=== PATIENT | female | born 1985 | race Caucasian/White ===

== ENCOUNTER 2020-02-08 14:33 | Day surgery (SDC) | payer BC ==
[~2020-02-08 14:33] MED LIST: Sodium Chloride 0.9% 10 ML Syringe FLUSH PRN
[2020-02-08] MEDS ORDERED: Midazolam 1 MG/ML 2 ML SDV ONE (14:56)
[2020-02-08] MEDS ORDERED: Rocuronium 50 MG/5 ML Vial ONE (14:56)
[2020-02-08] MEDS ORDERED: Propofol 200 MG/20 ML SDV ONE (14:56)
[2020-02-08] MEDS ORDERED: fentaNYL 250 MCG/5 ML SDV ONE (14:56)
[2020-02-08] MEDS ORDERED: Bupivacaine 0.5% 30 ML SDV ONE (15:04)
[2020-02-08] MEDS ORDERED: Clindamycin Phosphate in D5W 900 MG in Premix Bag 1 BAG IV ONE ×2 (15:15)
[2020-02-08] MEDS ORDERED: Lidocaine 1%/Sod Bicarbonate in NS 8.4% 1 ML Syringe IDERM PRN (15:31)
--- NOTE | 2020-02-08 15:32 | PCM.PREANE ---
Preanesthetic Assessment - Procedure Proposed Procedure: Diagnostic laparoscopy - Anesthesia/Transfusion/Family Hx Anesthesia History: Prior Anesthesia Without Reaction - Review of Systems General: No Symptoms Pulmonary: No Symptoms Cardiovascular: No Symptoms Gastrointestinal: No Symptoms Neurological: No Symptoms Other: Reports: None - Physical Assessment NPO Status Date: 02/08/20 NPO Status Time: 12:00 (CLQ) Vital Signs: Last Vital Signs Temp 98.5 F 02/08/20 14:45 Pulse 79 02/08/20 14:45 Resp 16 02/08/20 14:45 BP 147/83 H 02/08/20 14:45 Pulse Ox 99 02/08/20 14:45 Height: 1.78 m Weight: 93.9 kg ASA Class: 1E Mental Status: Alert & Oriented x3 Airway Class: Mallampati = 1 Dentition: Reports: Normal Dentition Thyro-Mental Finger Breadths: 3 Mouth Opening Finger Breadths: 3 ROM/Head Extension: Full Lungs: Clear to Auscultation, Normal Respiratory Effort Cardiovascular: Regular Rate, Regular Rhythm - Allergies Allergies/Adverse Reactions: Allergies Allergy/AdvReac Type Severity Reaction Status Date / Time cephalexin monohydrate Allergy Hives Verified 02/08/20 15:14 [From Keflex] chloraprep Allergy Burning Uncoded 02/08/20 15:14 - Acknowledgements Anesthesia Type Planned: General Anesthesia Pt an Appropriate Candidate for the Planned Anesthesia: Yes Alternatives and Risks of Anesthesia Discussed w Pt/Guardian: Yes Pt/Guardian Understands and Agrees with Anesthesia Plan: Yes PreAnesthesia Questionnaire - HOME MEDS Home Medications: Home Meds Acyclovir [Zovirax] 400 mg PO DAY 02/08/20 [History] Cholecalciferol (Vitamin D3) [Vitamin D3] 1,000 unit PO DAILY 02/08/20 [History] Cider Vinegar [Apple Cider Vinegar] 300 mg PO DAILY 02/08/20 [History] Cranberry 500 mg PO DAILY 02/08/20 [History] FLUoxetine HCl [Fluoxetine HCl] 10 mg PO DAILY 02/08/20 [History] FLUoxetine HCl [Fluoxetine HCl] 20 mg PO DAILY 02/08/20 [History] Lactobacillus Acidophilus [Probiotic] 1 cap PO DAILY 02/08/20 [History] Lidocaine/Prilocaine [Lidocaine-Prilocaine Cream] 1 dose TOP ASDIRECTED PRN 02/08/20 [History] Triamcinolone Acetonide [Kenalog 0.1% Crm] 1 dose TOP ASDIRECTED PRN 02/08/20 [History] proGESTerone [Progesterone] 1 supp VAG BID 02/08/20 [History] - CURRENT (IN HOUSE) MEDS Current Meds: Current Medications Discontinued Medications Bupivacaine HCl (Marcaine 0.5%) Confirm Administered Dose 30 ml .ROUTE .STK-MED ONE Stop: 02/08/20 15:05 Fentanyl (Sublimaze) Confirm Administered Dose 250 mcg .ROUTE .STK-MED ONE Stop: 02/08/20 14:57 Midazolam HCl (Versed 1 Mg/Ml) Confirm Administered Dose 4 mg .ROUTE .STK-MED ONE Stop: 02/08/20 14:57 Propofol (Diprivan 20 Ml) Confirm Administered Dose 200 mg .ROUTE .STK-MED ONE Stop: 02/08/20 14:57 Rocuronium [place] (Zemuron) Confirm Administered Dose 50 mg .ROUTE .STK-MED ONE Stop: 02/08/20 14:57
[2020-02-08] MEDS ORDERED: Ondansetron 4 MG/2 ML SDV ONE (15:37)
[2020-02-08] MEDS ORDERED: Dexamethasone 4 MG/ML 5 ML MDV ONE (15:38)
[2020-02-08] MEDS ORDERED: Lactated Ringers 1,000 ML IV SCH (15:45)
[2020-02-08] MEDS ORDERED: fentaNYL 100 MCG/2 ML SDV IVPUSH PRN (15:45)
[2020-02-08] MEDS ORDERED: HYDROmorphone 0.5 MG/0.5 ML Syringe IVPUSH PRN (15:45)
[2020-02-08] MEDS ORDERED: Lactated Ringers 1,000 ML ONE (16:09)
[2020-02-08] MEDS ORDERED: Ketorolac 30 MG/ML SDV ONE (16:11)
[2020-02-08] MEDS ORDERED: Ondansetron 4 MG/2 ML SDV IVPUSH PRN (16:45)
[2020-02-08] MEDS ORDERED: Ibuprofen 600 MG Tab PO PRN (16:45)
[2020-02-08] MEDS ORDERED: Acetaminophen/oxyCODONE 325-5 MG Tab PO PRN (16:45)
--- NOTE | 2020-02-08 16:46 | PCM.POSTAN ---
POST ANESTHESIA ASSESSMENT - MENTAL STATUS Mental Status: Somnolent - VITAL SIGNS Vital Signs: Last Vital Signs Temp 97.6 F 02/08/20 16:35 Pulse 79 02/08/20 14:45 Resp 16 02/08/20 16:45 BP 113/63 02/08/20 16:45 Pulse Ox 100 02/08/20 16:45 - RESPIRATORY Respiratory Status: Respiratory Rate WNL, Airway Patent, O2 Saturation Stable, Supplemental Oxygen - CARDIOVASCULAR CV Status: Pulse Rate WNL, Blood Pressure Stable - GASTROINTESTINAL GI Status: No Symptoms - PAIN Pain Score: 0 - POST OP HYDRATION Hydration Status: Adequate & Stable
--- NOTE | 2020-02-08 16:56 | PCM.OPNOTE ---
- General Post-Op/Procedure Note Date of Surgery/Procedure: 02/08/20 Operative Procedure(s): Laparoscopy with lysis of pelvic adhesions and right salpingectomy Findings: Patient is noted to have a hemoperitoneum with approximately 100 mL of blood present in the posterior and anterior cul-de-sac. There is active bleeding from the fimbriated end of the right fallopian tube. The right fallopian tube was enlarged, edematous and had blood clot adhered to attending involving the ovary on the right side also. Left fallopian tube and ovary and the ovary, once cleaned of clot, were found to be normal in appearance. The appendix was flaccid and noninflamed. The gallbladder was noninflamed and liver edges were within normal limits. There were some adhesions on the posterior cul-de-sac these are was feeling nature and possibly associated with previous posterior cul-de-sac inflammation or infection. There were venous varicosities noted in the left broad ligament and left pelvic ligament area. Pre Op Diagnosis: 1. Right ectopic . 2. Hemoperitoneum Post-Op Diagnosis: Same with pelvic adhesionsomentum to anterior abdominal wall. Anesthesia Technique: General ET Tube Other Anesthesia Type: Marcaine 0.5% approximately 3-5 mL at each of 3 incision sites. Primary Surgeon: Josue Cheng Secondary Surgeon: Delmer Harp Anesthesia Provider: Himanshu Metcalf Payroll Bookkeeper: Zoë Castaneda Reason Payroll Bookkeeper Was Necessary: Retraction, assistance, patient safety, quality of care. Pathology: Right fallopian tube with ectopic within it Fluid Replacement, Intraop: 1,500 Output, Urine Amount: 100 EBL in mLs: 100 Drain/Tube Comments:: Indwelling bladder catheter during surgery only. Removed at the end of the case. Complications: None Condition: Good Free Text/Narrative:: Surgery duration: 40 minutes Procedure: The patient was taken to the operating room and placed in supine position on the operative table. She had sequential compression stockings in place for DVT prophylaxis and had been given 900 g of clindamycin for infection prophylaxis. She was administered general endotracheal anesthesia. After administration of anesthesia the patient was placed in dorsal lithotomy position and prepped and draped in usual fashion. An indwelling bladder catheter was placed as was a uterine manipulator. Infraumbilical incision site and right lower quadrant abdominal site were then infiltrated with approximately 3-5 mL of Marcaine 0.5%. 5 mm incisions were made in these areas. Verres needle was placed in the infraumbilical incision site and pneumoperitoneum was established was in 3.5 L of CO2. The laparoscopic sleeve was then placed as was the scope. Under direct visualization the suprapubic site was developed with a 12 mm port. Pelvis was evaluated findings as above. Using a suction irrigation device the [place] was evacuated of hemoperitoneum blood. Approximately 100 mL total. The right ovary and fallopian tube were then elevated and 2 was found to be enlarged and indurated and approximately three quarters of its entire length. The mesosalpinx was identified and using Enseal vessel closure system this area was developed effectively removing the tube from the proximal normal tube all the way through the fimbriated end of the tube effectively removing the right tubal . It should be noted there was active bleeding from the fimbriated end of the fallopian tube at the time of the surgery. At this time the pelvis-anterior and posterior cul-de-sac specifically was irrigated and blood was removed. Hemostasis was confirmed. The right lower quadrant incision was then evaluated after removal of the 5 mm port. The supe rpubic site was also evaluated. Pneumoperitoneum was reversed and the upper port trocar was. The fascial layer of the site was closed with a [id number] suture of 0 Vicryl. It was closed with a single 3-0 Monocryl suture as were the right lower quadrant and the infraumbilical port sites. There further approximated with Dermabond skin glue. The patient was awakened from general endotracheal anesthesia. She may note that the indwelling bladder catheter was removed at the end the procedure. Patient left the operating room in good condition.
--- NOTE | 2020-02-08 17:19 | PCM48HPAN ---
Post Anesthesia Note - EVALUATION WITHIN 48HRS OF ANESTHETIC Vital Signs in Normal Range: Yes Patient Participated in Evaluation: Yes Respiratory Function Stable: Yes Airway Patent: Yes Cardiovascular Function Stable: Yes Hydration Status Stable: Yes Pain Control Satisfactory: Yes Nausea and Vomiting Control Satisfactory: Yes Mental Status Recovered: Yes Vital Signs: Last Vital Signs Temp 97.6 F 02/08/20 16:35 Pulse 79 02/08/20 14:45 Resp 12 02/08/20 17:15 BP 121/70 02/08/20 17:15 Pulse Ox 100 02/08/20 17:15 - COMMENTS/OBSERVATIONS Free Text/Narrative:: No anesthesia complications noted. Patient is being transferred to Medical- Surgical floor for an extended recovery
[2020-02-08] MEDS ORDERED: Acetaminophen/oxyCODONE 325-5 MG Tab PO ONE (20:07)
== END 2020-02-08 20:35 | disposition home or self-care (01) ==
LOC: JD.SDS 14:33 → JD.MS 18:21 → JD.SDS 20:35
PROVIDERS: ATTEND Obstetrics & Gynecology
DX: O00.101 Right tubal pregnancy without intrauterine pregnancy (principal); K66.1 Hemoperitoneum; F41.8 Other specified anxiety disorders; Z88.1 Allergy status to other antibiotic agents; Z88.8 Allergy status to other drugs, medicaments and biological substances; Z79.899 Other long term (current) drug therapy
CPT/HCPCS: 59151; A9270; J1100; J1885; J2250; J2405; J2704; J3010; J3490; J7120; 00840

== ENCOUNTER 2020-07-06 20:18 | Day surgery (SDC) | payer BC ==
[2020-07-06] MEDS ORDERED: Sodium Chloride 0.9% 10 ML Syringe FLUSH PRN (20:49)
[2020-07-06] MEDS ORDERED: Sodium Chloride 0.9% 1,000 ML IV STA (20:50)
[2020-07-06] MEDS ORDERED: HYDROmorphone 0.5 MG/0.5 ML Syringe IVPUSH ONE ×2 (20:50→21:43)
[2020-07-06] MEDS ORDERED: Ondansetron 4 MG/2 ML SDV IVPUSH ONE (20:50)
--- NOTE | 2020-07-06 21:08 | EDM.PDOC ---
ED HPI GENERAL MEDICAL PROBLEM - General Chief Complaint: Abdominal Pain Stated Complaint: SENT BY MIS[facility]RI[facility] TODAY Time Seen by Provider: 07/06/20 20:41 Source of Information: Reports: Patient, RN Notes Reviewed History Limitations: Reports: No Limitations - History of Present Illness INITIAL COMMENTS - FREE TEXT/NARRATIVE: Patient is a 35-year-old female presenting to the emergency department with complaints of severe abdominal pain, pelvic cramping, and pain shooting up to her right shoulder. Symptoms began around 3 PM this afternoon. She states it has been consistent, possibly slightly worse, since that time. Patient was told 2 weeks ago that she was going to have a miscarriage by her [employer], Dr. Cheng. Review of her medical record shows that her quantitative hCG dropped from 9556 on 10 June to 4735 on June 21. Patient states that on June 24, she had bleeding which she describes as like a regular period. She did not have a significant amount of cramping or pain with this bleeding. It lasted 7 days. She is not sure if she passed tissue. She has no vaginal bleeding at this time. States that she has had regular bowel movements. Which she went today, however she states it was very painful to go. She denies any fever or chills. She has had nausea with dry heaves but no vomiting. Denies diarrhea. Patient also has a medical history significant for a right ectopic in January 2020. At that time she had a right salpingectomy. She states this does not feel like her previous ectopic , therefore she was not very concerned. She spoke to Dr. Cheng's nurse this afternoon. She was advised that if the pain does not improve, she could should come to the ER otherwise, she was to have a pelvic ultrasound done in the clinic tomorrow. Lower Abdomen Pain Score (Numeric/FACES): 9 - Related Data Allergies Allergy/AdvReac Type Severity Reaction Status Date / Time cephalexin monohydrate Allergy Hives Verified 07/06/20 20:40 [From Keflex] chloraprep Allergy Burning Uncoded 02/08/20 15:14 Home Meds: Home Meds Cholecalciferol (Vitamin D3) [Vitamin D3] 1,000 unit PO DAILY 02/08/20 [History] Cider Vinegar [Apple Cider Vinegar] 300 mg PO DAILY 02/08/20 [History] Cranberry 500 mg PO DAILY 02/08/20 [History] FLUoxetine HCl [Fluoxetine HCl] 10 mg PO DAILY 02/08/20 [History] FLUoxetine HCl [Fluoxetine HCl] 20 mg PO DAILY 02/08/20 [History] Lactobacillus Acidophilus [Probiotic] 1 cap PO DAILY 02/08/20 [History] Lidocaine/Prilocaine [Lidocaine-Prilocaine Cream] 1 dose TOP ASDIRECTED PRN 02/08/20 [History] Ibuprofen [Motrin] 600 mg PO Q4H PRN tablet 07/07/20 [Rx] traMADol [Ultram] 50 mg PO Q4H PRN #0 tablet 07/07/20 [Rx] Past Medical History - Past Health History Medical/Surgical History: Denies Medical/Surgical History HEENT History: Reports: Impaired Vision [employer] History: Reports: Ectopic , , Spontaneous - Past Surgical History Female Surgical History: Reports: Section, D&C, Oophorectomy Social & Family History - Family History Family Medical History: No Pertinent Family History - Tobacco Use Tobacco Use Status *Q: Never Tobacco User - Caffeine Use Caffeine Use: Reports: Coffee, Energy Drinks, Soda - Recreational Drug Use Recreational Drug Use: No ED ROS GENERAL - Review of Systems Review Of Systems: See Below Constitutional: Reports: No Symptoms. Denies: Fever, Chills HEENT: Reports: No Symptoms Respiratory: Reports: No Symptoms Cardiovascular: Reports: No Symptoms Endocrine: Reports: No Symptoms GI/Abdominal: Reports: Abdominal Pain, Nausea, Other (pain shooting to right shoulder). Denies: Diarrhea, Vomiting : Reports: Pain Musculoskeletal: Reports: No Symptoms Skin: Reports: No Symptoms Neurological: Reports: No Symptoms Psychiatric: Reports: No Symptoms Hematologic/Lymphatic: Reports: No Symptoms Immunologic: Reports: No Symptoms ED EXAM, GI/ABD - Physical Exam Exam: See Below Exam Limited By: No Limitations General Appearance: Alert, Mild Distress Respiratory/Chest: No Respiratory Distress, Lungs Clear, Normal Breath Sounds, No Accessory Muscle Use, Chest Non-Tender Cardiovascular: Normal Peripheral Pulses, Regular Rate, Rhythm, No Edema, No Gallop, No JVD, No Murmur, No Rub GI/Abdominal Exam: Soft, Guarding, Tender (Tenderness throughout the abdomen. Worsening tenderness suprapubically.), Abnormal Bowel Sounds (Hypoactive) Neurological: Alert, Oriented, CN II-XII Intact, Normal Cognition, Normal Gait, Normal Reflexes, No Motor/Sensory Deficits Psychiatric: Normal Affect, Normal Mood Skin Exam: Warm, Dry, Intact, Normal Color, No Rash Course - Vital Signs Last Recorded V/S: Last Vital Signs Temp 98.0 F 07/07/20 12:42 Pulse 55 L 07/07/20 12:05 Resp 16 07/07/20 12:42 BP 115/55 L 07/07/20 12:05 Pulse Ox 100 07/07/20 12:42 - Orders/Labs/Meds Labs: Laboratory Tests 07/06/20 07/06/20 07/06/20 Range/Units 20:55 20:55 20:55 WBC 16.83 H (3.98-10.04) K/mm3 RBC 3.62 L (3.98-5.22) M/mm3 Hgb 11.1 L D (11.2-15.7) gm/dl Hct 33.9 L (34.1-44.9) % MCV 93.6 (79.4-94.8) fl MCH 30.7 (25.6-32.2) pg MCHC 32.7 (32.2-35.5) g/dl RDW Std Deviation 40.1 (36.4-46.3) fL Plt Count 250 (182-369) K/mm3 MPV 10.7 (9.4-12.3) fl Neut % (Auto) 88.2 H (34.0-71.1) % Lymph % (Auto) 7.3 L (19.3-51.7) % [place] % (Auto) 4.2 L (4.7-12.5) % Eos % (Auto) 0 L (0.7-5.8) Baso % (Auto) 0.1 (0.1-1.2) % Neut # (Auto) 14.86 H (1.56-6.13) K/mm3 Lymph # (Auto) 1.23 (1.18-3.74) K/mm3 [place] # (Auto) 0.70 H (0.24-0.36) K/mm3 Eos # (Auto) 0.00 L (0.04-0.36) K/mm3 Baso # (Auto) 0.01 (0.01-0.08) K/mm3 Manual Slide Review Sodium 135 L (136-145) mEq/L Potassium 3.6 (3.5-5.1) mEq/L Chloride 102 (98-107) mEq/L Carbon Dioxide 24 (21-32) mEq/L Anion Gap 12.6 (5-15) BUN 18 (7-18) mg/dL Creatinine 1.1 H (0.55-1.02) mg/dL Est Cr Clr Drug Dosing 78.66 mL/min Estimated GFR (MDRD) 57 (>60) mL/min BUN/Creatinine Ratio 16.4 (14-18) Glucose 148 H (74-106) mg/dL Calcium 9.0 (8.5-10.1) mg/dL Total Bilirubin 0.4 (0.2-1.0) mg/dL AST 14 L (15-37) U/L ALT 37 (14-59) U/L Alkaline Phosphatase 35 L (46-116) U/L C-Reactive Protein < 0.2 (<1.0) mg/dL Total Protein 6.6 (6.4-8.2) g/dl Albumin 3.7 (3.4-5.0) g/dl Globulin 2.9 gm/dL Albumin/Globulin Ratio 1.3 (1-2) Lipase 87 (73-393) U/L HCG, Quant 632.0 mIU/mL SARS-CoV-2 RNA (NATALI) (NEGATIVE) Blood Type A POSITIVE Gel Antibody Screen Negative Crossmatch See Detail 07/06/20 07/07/20 Range/Units 21:45 09:55 WBC 10.01 (3.98-10.04) K/mm3 RBC 2.93 L (3.98-5.22) M/mm3 Hgb 8.9 L D (11.2-15.7) gm/dl Hct 27.6 L (34.1-44.9) % MCV 94.2 (79.4-94.8) fl MCH 30.4 (25.6-32.2) pg MCHC 32.2 (32.2-35.5) g/dl RDW Std Deviation 40.0 (36.4-46.3) fL Plt Count 214 (182-369) K/mm3 MPV 10.3 (9.4-12.3) fl Neut % (Auto) 86.7 H (34.0-71.1) % Lymph % (Auto) 8.5 L (19.3-51.7) % [place] % (Auto) 4.7 (4.7-12.5) % Eos % (Auto) 0 L (0.7-5.8) Baso % (Auto) 0.0 L (0.1-1.2) % Neut # (Auto) 8.68 H (1.56-6.13) K/mm3 Lymph # (Auto) 0.85 L (1.18-3.74) K/mm3 [place] # (Auto) 0.47 H (0.24-0.36) K/mm3 Eos # (Auto) 0.00 L (0.04-0.36) K/mm3 Baso # (Auto) 0.00 L (0.01-0.08) K/mm3 Manual Slide Review Abnormal smear Sodium (136-145) mEq/L Potassium (3.5-5.1) mEq/L Chloride (98-107) mEq/L Carbon Dioxide (21-32) mEq/L Anion Gap (5-15) BUN (7-18) mg/dL Creatinine (0.55-1.02) mg/dL Est Cr Clr Drug Dosing mL/min Estimated GFR (MDRD) (>60) mL/min BUN/Creatinine Ratio (14-18) Glucose (74-106) mg/dL Calcium (8.5-10.1) mg/dL Total Bilirubin (0.2-1.0) mg/dL AST (15-37) U/L ALT (14-59) U/L Alkaline Phosphatase (46-116) U/L C-Reactive Protein (<1.0) mg/dL Total Protein (6.4-8.2) g/dl Albumin (3.4-5.0) g/dl Globulin gm/dL Albumin/Globulin Ratio (1-2) Lipase (73-393) U/L HCG, Quant mIU/mL SARS-CoV-2 RNA (NATALI) Negative (NEGATIVE) Blood Type Gel Antibody Screen Crossmatch Meds: Medications Discontinued Medications Generic Name Dose Route Start Last Admin Trade Name Freq PRN Reason Stop Dose Admin Bupivacaine HCl Confirm 07/06/20 22:49 07/06/20 23:20 Marcaine 0.5% Administered 07/06/20 22:50 9 ml Dose Administration 30 ml .ROUTE .STK-MED ONE Dexamethasone Confirm 07/06/20 23:41 Dexamethasone Administered 07/06/20 23:42 Dose 20 mg .ROUTE .STK-MED ONE Diphenhydramine HCl 50 mg 07/07/20 13:56 07/07/20 14:07 Benadryl PO 07/07/20 13:57 50 mg ONETIME ONE Administration Fentanyl Confirm 07/06/20 22:21 Sublimaze Administered 07/06/20 22:22 Dose 250 mcg .ROUTE .STK-MED ONE Fentanyl 50 mcg 07/06/20 23:19 Sublimaze IVPUSH Q5M PRN Pain Glycopyrrolate Confirm 07/06/20 23:28 Robinul Administered 07/06/20 23:29 Dose 0.4 mg .ROUTE .STK-MED ONE Hydromorphone HCl 0.5 mg 07/06/20 20:50 07/06/20 20:58 Dilaudid IVPUSH 07/06/20 20:51 0.5 mg ONETIME ONE Administration Hydromorphone HCl 0.5 mg 07/06/20 21:43 07/06/20 21:47 Dilaudid IVPUSH 07/06/20 21:44 0.5 mg ONETIME ONE Administration Hydromorphone HCl 0.5 mg 07/06/20 23:19 07/07/20 00:49 Dilaudid IVPUSH 0.5 mg Q10M PRN Administration Pain (severe 7-10) Hydromorphone HCl Confirm 07/06/20 23:24 Dilaudid Administered 07/06/20 23:25 Dose 0.5 mg .ROUTE .STK-MED ONE Hydromorphone HCl 0.5 mg 07/07/20 03:18 07/07/20 03:26 Dilaudid IVPUSH 0.5 mg Q2H PRN Administration Pain Sodium Chloride 1,000 mls @ 150 mls/hr 07/06/20 20:50 07/06/20 20:58 Normal Saline IV 07/07/20 03:29 150 mls/hr NOW STA Administration Clindamycin Phosphate 900 mg/ 50 mls @ 100 mls/hr 07/06/20 22:07 07/06/20 22:15 Premix IV 07/06/20 22:36 100 mls/hr ONETIME ONE Administration Lidocaine HCl Confirm 07/06/20 22:21 Xylocaine-Mpf 1% Administered 07/06/20 22:22 Dose 4 mls @ as directed .ROUTE .STK-MED ONE Lactated Ringer's Confirm 07/06/20 23:25 Ringers, Lactated Administered 07/06/20 23:26 Dose 1,000 mls @ as directed .ROUTE .STK-MED ONE Dextrose/Lactated Ringer's 1,000 mls @ 125 mls/hr 07/07/20 00:30 Dextrose 5%-Lactated Ringers IV ASDIRECTED LACI Ibuprofen 600 mg 07/07/20 06:00 07/07/20 12:47 Motrin PO 600 mg Q4H PRN Administration Mild pain or fever Ketorolac Tromethamine Confirm 07/06/20 23:51 Toradol Administered 07/06/20 23:52 Dose 30 mg .ROUTE .STK-MED ONE Midazolam HCl Confirm 07/06/20 22:21 Versed 1 Mg/Ml Administered 07/06/20 22:22 Dose 2 mg .ROUTE .STK-MED ONE Neostigmine Methylsulfate Confirm 07/06/20 23:27 Neostigmine Methylsulfate Administered 07/06/20 23:28 Dose 5 mg .ROUTE .STK-MED ONE Ondansetron HCl 4 mg 07/06/20 20:50 07/06/20 20:57 Zofran IVPUSH 07/06/20 20:51 4 mg ONETIME ONE Administration Ondansetron HCl Confirm 07/06/20 22:21 Zofran Administered 07/06/20 22:22 Dose 4 mg .ROUTE .STK-MED ONE Ondansetron HCl 4 mg 07/06/20 23:19 Zofran IVPUSH ONETIME PRN Nausea/Vomiting Ondansetron HCl 4 mg 07/07/20 00:19 Zofran IVPUSH Q4H PRN Nausea Oxycodone/Acetaminophen 2 tab 07/07/20 00:19 07/07/20 10:02 Percocet 325-5 Mg PO 2 tab Q4H PRN Administration Pain Propofol Confirm 07/06/20 22:21 Diprivan 20 Ml Administered 07/06/20 22:22 Dose 200 mg .ROUTE .STK-MED ONE Rocuronium [place] Confirm 07/06/20 22:21 Zemuron Administered 07/06/20 22:22 Dose 50 mg .ROUTE .STK-MED ONE Sodium Chloride 10 ml 07/06/20 20:49 07/06/20 20:57 Saline Flush FLUSH 10 ml ASDIRECTED PRN Administration Keep Vein Open Tramadol HCl 50 mg 07/07/20 13:52 07/07/20 14:01 Ultram PO 50 mg Q4H PRN Administration Pain - Re-Assessments/Exams Free Text/Narrative Re-Assessment/Exam: Patient is a 35-year-old female presenting to the emergency department with diffuse abdominal pain, and pelvic cramping that shoots up into her right shoulder. This began about 3 PM this afternoon. She originally thought it was gas pains, but pain has not improved. She was told 2 weeks ago that she would have a miscarriage as her hCG level significantly dropped. She did have bl eeding for 1 week starting on 24 June but she is not sure if she passed any tissue. She denies any vaginal bleeding at this time. She is quite uncomfortable. She has tenderness throughout her abdomen worse suprapubically. I have ordered CBC, CMP, CRP, lipase, quantitative hCG, UA, CT scan of abdomen pelvis with IV contrast, NS at 150 mils per hour, Dilaudid 0.5 mg IV, and Zofran 4 mg IV. 07/06/20 21:48 CT scan of the abdomen pelvis shows obvious blood in the abdominal cavity. Official radiologist read is pending. Hemoglobin slightly low at 11.1, other lab results are pending. Called and spoke with Dr. Cheng, [employer]. He will be in to see the patient. Patient continues to have pain. I have ordered Dilaudid 0.5 mg IV. Also ordered type and screen, and 2 units of packed RBCs c rossmatched. 07/06/20 22:04 Dr. Cheng is here to see the patient. Request OR crew be called in. 07/06/20 22:[address] scan abdomen pelvis as follows. There is a moderate volume of high density free fluid seen mainly in the pelvis but also tracks into the abdomen. The appearance is worrisome for pneumoperitoneum, likely arising from the ovaries. In particular, a solid cystic lesion in the left adnexa likely representing an enlarged ovary. Differential diagnosis would include ruptured hemorrhagic cyst or ruptured ectopic . Given patient's history of elevated hCG, is likely this is a ruptured ectopic . Copy of report given to Dr. Cheng. Patient is being prepared for surgery. Departure - Departure Time of Disposition: 22:25 Disposition: DC/Tfer to [facility] Condition: Good Clinical Impression: Ectopic Qualifiers: Location of ectopic : unspecified location Intrauterine status: without intrauterine Qualified Code(s): O00.90 - Unspecified ectopic without intrauterine - Discharge Information Sepsis Event Note (ED) - Evaluation Sepsis Screening Result: No Definite Risk
[2020-07-06] MEDS ORDERED: Clindamycin Phosphate in D5W 900 MG in Premix Bag 1 BAG IV ONE ×2 (22:07)
[2020-07-06] MEDS ORDERED: Midazolam 1 MG/ML 2 ML SDV ONE (22:21)
[2020-07-06] MEDS ORDERED: Propofol 200 MG/20 ML SDV ONE (22:21)
[2020-07-06] MEDS ORDERED: Rocuronium 50 MG/5 ML Vial ONE (22:21)
[2020-07-06] MEDS ORDERED: Lidocaine 1% 4 ML ONE (22:21)
[2020-07-06] MEDS ORDERED: fentaNYL 250 MCG/5 ML SDV ONE (22:21)
[2020-07-06] MEDS ORDERED: Ondansetron 4 MG/2 ML SDV ONE (22:21)
--- NOTE | 2020-07-06 22:26 | PCM.LDHP ---
L&D History of Present Illness - General Date of Service: 07/06/20 Admit Problem/Dx: Patient Status Order with Admit Dx/Problem 07/06/20 22:08 Admission Status [Patient Status] [ADT] Routine Admission Diagnosis/Problem Admission Diagnosis/Problem Ectopic 07/06/20 22:14 Caterina is a 35-year-old 4 para 2-0-2-2 white female who is seen in the ED for complaints of acute onset of pelvic and abdominal pain at approximately 1500 hrs. today. She has a history of a decreasing nontender beta-hCG titers. On patient was noted to have a decreasing titer and beta-hCG that had dropped from 9556.0 milliunits/mL to 735 milliunits/mL. An ultrasound done on 06/21/2020 showed uterus measuring 8.91 cm in length by 5.52 cm in height by 5.29 cm in width. Within the endometrial cavity is a very irregular and vaguely seen radiolucent area. There is no evidence of pole or cardiac activity. This area was 1.37 cm in greatest dimension. Right ovary measures 3.52 x 1.74 x 1.12 cm and appeared normal. Left ovary was somewhat more difficult to see but was felt to measure 2.65 x 1.61 x 3.64 cm. There is no evidence of adnexal mass, radiolucent area or evidence of ectopic however ectopic cannot be ruled out. Patient was given ectopic precautions and asked to follow-up in 1 week. He apparently called into clinic on the afternoon of 07/06/2020 and talk to nursing staff. She is told to come into the emergency room if pain increase. She is here for that reason. She denies any vaginal bleeding, symptoms. Does report some abdominal pain extending up into her right shoulder area. 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 LMP 05/13/2020. She has had an ectopic with in the right fallopian tube which was removed in January 2020 via laparoscopy. She has had 2 previous sections. On last laparoscopic evaluation she was noted to have amount of scarring present. Past medical history: 1. Ectopic 2. Processed ovarian syndrome 3. History of depression with anxiety 4. History of acne 5. History of recurrent cold sores Past surgical history: 1. History of ankle surgery x2 at age 17 and 18. 2. C-sections 2010 2013. 3. History of laparoscopy 4. History of salpingectomy in the right fallopian tube. 5. History of tonsillectomy Allergies: 1. Keflex which caused hives. 2. Buprenorphine 3. Tincture of benzoin 4. Adhesive tape Medications: 1. Apple cider vinegar tablet 2. B12 folate 3. Cranberry capsule 4. Fluoxetine 10 mg daily 5. Lidocaine with prilocaine cream external applied 6. vitamins 7. Probiotic 8. Valacyclovir as needed for cold sores 9. Vitamin D oral tablet 1000 units/day. Family history: Father with hypertension and type 2 diabetes. Maternal great grandmother with malignant neoplasm of the breast at age 50. Maternal grandfather with family history of cardiac disorder with family history of heart disease in males before age 55, and. Family history of type 2 diabetes. Paternal grandfather with family history of prostate cancer. Social history: Patient is a homemaker. Occasional alcohol use. Never smoker. Review of systems: In general patient has no pain radiating to the shoulders. Pain increases with her movement. No shortness of breath, chest pain or lightheadedness noted. Had a bowel movement this afternoon.. Skin: Negative Lungs: No infectious symptoms or shortness of breath Cardiovascular: No chest pain or exercise intolerance Breasts: No lumps, changes in size, pain, dimpling, discharge or axillary or singh praclavicular concerns. GI: Negative : As per HPI. Musculoskeletal: Negative Neurological: Negative Physical exam: In general the patient is well-developed, well-nourished, pleasant female of stated age in moderate distress secondary to pain which she reports to be 9 on a scale of 10.. Skin is warm dry without lesions. HEENT, neck and back within normal limits. Lungs are clear with good breath sounds in all lung galaviz. Cardiovascular exam shows regular and rhythm without murmurs. Abdomen is flat, tender without masses or organomegaly. Positive bowel sounds are noted. No inguinal lymphadenopathy or hernias are noted. Some rebound tenderness and guarding is noted. Genital exam is deferred. Extremities and neurological exam are grossly within normal limits. Imaging shows moderate moderate high density free fluid seen mainly in the pelvis but also tracking into the abdomen. Suspicious for hemoperitoneum. A solid and cystic lesion in the left adnexa likely represents enlarged left ovary. Differential diagnosis includes potential ruptured ectopic . hCG at this time is 632 mg/mL. Hemoglobin is 11.1 with white count of 16.83. Platelets are 250,000. Creatin ine is 1.1. Remainder of the comprehensive metabolic profile is reasonably normal. 07/06/20 22:26 - History of Present Illness Timing/Duration: Reports: improving Pain Score: 8 - Related Data Allergies/Adverse Reactions: Allergies Allergy/AdvReac Type Severity Reaction Status Date / Time cephalexin monohydrate Allergy Hives Verified 07/06/20 20:40 [From Keflex] chloraprep Allergy Burning Uncoded 02/08/20 15:14 Home Medications: Home Meds Cholecalciferol (Vitamin D3) [Vitamin D3] 1,000 unit PO DAILY 02/08/20 [History] Cider Vinegar [Apple Cider Vinegar] 300 mg PO DAILY 02/08/20 [History] Cranberry 500 mg PO DAILY 02/08/20 [History] FLUoxetine HCl [Fluoxetine HCl] 10 mg PO DAILY 02/08/20 [History] FLUoxetine HCl [Fluoxetine HCl] 20 mg PO DAILY 02/08/20 [History] Ibuprofen [Motrin] 600 mg PO Q4H PRN tablet 02/08/20 [Rx] Lactobacillus Acidophilus [Probiotic] 1 cap PO DAILY 02/08/20 [History] Lidocaine/Prilocaine [Lidocaine-Prilocaine Cream] 1 dose TOP ASDIRECTED PRN 02/08/20 [History] Past Medical History - Past Health History Medical/Surgical History: Denies Medical/Surgical History HEENT History: Reports: Impaired Vision 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 , , Spontaneous - Past Surgical History Female Surgical History: Reports: Section, D&C, Oophorectomy Social & Family History - Family History Family Medical History: No Pertinent Family History - Tobacco Use Tobacco Use Status *Q: Never Tobacco User - Caffeine Use Caffeine Use: Reports: Coffee, Energy Drinks, Soda - Recreational Drug Use Recreational Drug Use: No H&P Review of Systems - Review of Systems: Review Of Systems: See Below L&D Exam - Exam Exam: See Below - Vital Signs Vital Signs: Last Vital Signs Temp 36.3 C 07/06/20 20:34 Pulse 69 07/06/20 20:34 Resp 20 07/06/20 20:34 BP 112/94 H 07/06/20 20:34 Pulse Ox 100 07/06/20 20:34 Weight: 103.691 kg - Patient Data Lab Results Last 24 hrs: Laboratory Results - last 24 hr 07/06/20 07/06/20 Range/Units 20:55 20:55 WBC 16.83 H (3.98-10.04) K/mm3 RBC 3.62 L (3.98-5.22) M/mm3 Hgb 11.1 L D (11.2-15.7) gm/dl Hct 33.9 L (34.1-44.9) % MCV 93.6 (79.4-94.8) fl MCH 30.7 (25.6-32.2) pg MCHC 32.7 (32.2-35.5) g/dl RDW Std Deviation 40.1 (36.4-46.3) fL Plt Count 250 (182-369) K/mm3 MPV 10.7 (9.4-12.3) fl Neut % (Auto) 88.2 H (34.0-71.1) % Lymph % (Auto) 7.3 L (19.3-51.7) % Wilson % (Auto) 4.2 L (4.7-12.5) % Eos % (Auto) 0 L (0.7-5.8) Baso % (Auto) 0.1 (0.1-1.2) % Neut # (Auto) 14.86 H (1.56-6.13) K/mm3 Lymph # (Auto) 1.23 (1.18-3.74) K/mm3 Wilson # (Auto) 0.70 H (0.24-0.36) K/mm3 Eos # (Auto) 0.00 L (0.04-0.36) K/mm3 Baso # (Auto) 0.01 (0.01-0.08) K/mm3 Manual Slide Review Sodium 135 L (136-145) mEq/L Potassium 3.6 (3.5-5.1) mEq/L Chloride 102 (98-107) mEq/L Carbon Dioxide 24 (21-32) mEq/L Anion Gap 12.6 (5-15) BUN 18 (7-18) mg/dL Creatinine 1.1 H (0.55-1.02) mg/dL Est Cr Clr Drug Dosing 78.66 mL/min Estimated GFR (MDRD) 57 (>60) mL/min BUN/Creatinine Ratio 16.4 (14-18) Glucose 148 H (74-106) mg/dL Calcium 9.0 (8.5-10.1) mg/dL Total Bilirubin 0.4 (0.2-1.0) mg/dL AST 14 L (15-37) U/L ALT 37 (14-59) U/L Alkaline Phosphatase 35 L (46-116) U/L C-Reactive Protein < 0.2 (<1.0) mg/dL Total Protein 6.6 (6.4-8.2) g/dl Albumin 3.7 (3.4-5.0) g/dl Globulin 2.9 gm/dL Albumin/Globulin Ratio 1.3 (1-2) Lipase 87 (73-393) U/L HCG, Quant 632.0 mIU/mL Result Diagrams: 07/06/20 20:55 07/06/20 20:55 Problem List Initiated/Reviewed/Updated: Yes Orders Last 24hrs: Active Orders 24 hr Category Date Time Status Admission Status [Patient Status] [ADT] Routine ADT 07/06/20 22:08 Active Antiembolic Devices [RC] PER UNIT ROUTINE Care 07/06/20 22:08 Active Peripheral IV Care [RC] . DIRECTED Care 07/06/20 20:49 Active Abdomen Pelvis w Cont [CT] Stat Exams 07/06/20 20:50 Ordered Abdomen Pelvis w Cont [CT] Stat Exams 07/06/20 20:50 Stop Req CORONAVIRUS COVID-19 NATAIL [MOLEC] Stat Lab 07/06/20 21:45 Received RED BLOOD CELLS LP [BBK] Stat Lab 07/06/20 20:55 Received TYPE AND SCREEN [BBK] Stat Lab 07/06/20 20:55 Received Clindamycin Phosphate in D5W [Cleocin in D5W] 900 mg Med 07/06/20 22:07 Active Premix Bag 1 bag IV ONETIME Sodium Chloride 0.9% [Normal Saline] 1,000 ml Med 07/06/20 20:50 Active IV NOW Sodium Chloride 0.9% [Saline Flush] Med 07/06/20 20:49 Active 10 ml FLUSH ASDIRECTED PRN Peripheral IV Insertion Adult [OM.PC] Stat Oth 07/06/20 20:49 Ordered SCD [Sequential Compression Device] [OM.PC] Routine Oth 07/06/20 22:08 Ordered Schedule Procedure [COMM] Stat Oth 07/06/20 22:05 Ordered Schedule Procedure [COMM] Stat Oth 07/06/20 22:08 Ordered Medication Orders Sodium Chloride (Normal Saline) 1,000 mls @ 150 mls/hr IV NOW STA Stop: 07/07/20 03:29 Last Admin: 07/06/20 20:58 Dose: 150 mls/hr Documented by: EDEN Clindamycin Phosphate 900 mg/ (Premix) 50 mls @ 100 mls/hr IV ONETIME ONE Stop: 07/06/20 22:36 Sodium Chloride (Saline Flush) 10 ml FLUSH ASDIRECTED PRN PRN Reason: Keep Vein Open Last Admin: 07/06/20 20:57 Dose: 10 ml Documented by: EDEN Assessment/Plan Comment:: 1. The working diagnosis is ectopic because of the following: Pelvic/abdominal pain, decreasing quantitative beta-hCG, hemoperitoneum, mass in the left adnexa, history of previous ectopic , risk factors for ectopic including history of x2 and previous ectopic . 2. Risk factors for surgery include history of previous surgeries including 2 C -section x2 and laparoscopy with right salpingectomy 3. Generally healthy female with comorbidities of anxiety depression. Plan: 1. Laparoscopy, possible salpingectomy, possible laparotomy. Will evacuate hemoperitoneum. Patient is understanding that she may be sterile because of the possible removal of her last fallopian tube. 2. DVT prophylaxis with SCDs 3. Infection prophylaxis with clindamycin 900 mg IV preop 4. Patient is Rh+ therefore is not in need of RhoGam.
--- NOTE | 2020-07-06 22:36 | PCM.PREANE ---
Preanesthetic Assessment - Procedure Proposed Procedure: laparoscopy - Anesthesia/Transfusion/Family Hx Anesthesia History: Prior Anesthesia Without Reaction Family History of Anesthesia Reaction: No Transfusion History: No Prior Transfusion(s) - Review of Systems General: Chills (today) Pulmonary: Shortness of Breath (becausse it is painful to breathe) Gastrointestinal: Abdominal Pain (330 today) Neurological: No Symptoms Other: Reports: None - Physical Assessment NPO Status Date: 07/06/20 NPO Status Time: 18:00 Vital Signs: Last Vital Signs Temp 97.4 F 07/06/20 20:34 Pulse 69 07/06/20 20:34 Resp 20 07/06/20 20:34 BP 112/94 H 07/06/20 20:34 Pulse Ox 100 07/06/20 20:34 Height: 5 ft 10 in Weight: 103.691 kg ASA Class: 2E Mental Status: Alert & Oriented x3 Airway Class: Mallampati = 1 Dentition: Reports: Normal Dentition Thyro-Mental Finger Breadths: 3 Mouth Opening Finger Breadths: 3 ROM/Head Extension: Full Lungs: Clear to Auscultation, Normal Respiratory Effort Cardiovascular: Regular Rate, Regular Rhythm - Lab Values: Laboratory Last Values WBC 16.83 K/mm3 (3.98-10.04) H 07/06/20 20:55 RBC 3.62 M/mm3 (3.98-5.22) L 07/06/20 20:55 Hgb 11.1 gm/dl (11.2-15.7) L D 07/06/20 20:55 Hct 33.9 % (34.1-44.9) L 07/06/20 20:55 MCV 93.6 fl (79.4-94.8) 07/06/20 20:55 MCH 30.7 pg (25.6-32.2) 07/06/20 20:55 MCHC 32.7 g/dl (32.2-35.5) 07/06/20 20:55 RDW Std Deviation 40.1 fL (36.4-46.3) 07/06/20 20:55 Plt Count 250 K/mm3 (182-369) 07/06/20 20:55 MPV 10.7 fl (9.4-12.3) 07/06/20 20:55 Neut % (Auto) 88.2 % (34.0-71.1) H 07/06/20 20:55 Lymph % (Auto) 7.3 % (19.3-51.7) L 07/06/20 20:55 [place] % (Auto) 4.2 % (4.7-12.5) L 07/06/20 20:55 Eos % (Auto) 0 (0.7-5.8) L 07/06/20 20:55 Baso % (Auto) 0.1 % (0.1-1.2) 07/06/20 20:55 Neut # (Auto) 14.86 K/mm3 (1.56-6.13) H 07/06/20 20:55 Lymph # (Auto) 1.23 K/mm3 (1.18-3.74) 07/06/20 20:55 [place] # (Auto) 0.70 K/mm3 (0.24-0.36) H 07/06/20 20:55 Eos # (Auto) 0.00 K/mm3 (0.04-0.36) L 07/06/20 20:55 Baso # (Auto) 0.01 K/mm3 (0.01-0.08) 07/06/20 20:55 Manual Slide Review 07/06/20 20:55 Sodium 135 mEq/L (136-145) L 07/06/20 20:55 Potassium 3.6 mEq/L (3.5-5.1) 07/06/20 20:55 Chloride 102 mEq/L (98-107) 07/06/20 20:55 Carbon Dioxide 24 mEq/L (21-32) 07/06/20 20:55 Anion Gap 12.6 (5-15) 07/06/20 20:55 BUN 18 mg/dL (7-18) 07/06/20 20:55 Creatinine 1.1 mg/dL (0.55-1.02) H 07/06/20 20:55 Est Cr Clr Drug Dosing 78.66 mL/min 07/06/20 20:55 Estimated GFR (MDRD) 57 mL/min (>60) 07/06/20 20:55 BUN/Creatinine Ratio 16.4 (14-18) 07/06/20 20:55 Glucose 148 mg/dL (74-106) H 07/06/20 20:55 Calcium 9.0 mg/dL (8.5-10.1) 07/06/20 20:55 Total Bilirubin 0.4 mg/dL (0.2-1.0) 07/06/20 20:55 AST 14 U/L (15-37) L 07/06/20 20:55 ALT 37 U/L (14-59) 07/06/20 20:55 Alkaline Phosphatase 35 U/L (46-116) L 07/06/20 20:55 C-Reactive Protein < 0.2 mg/dL (<1.0) 07/06/20 20:55 Total Protein 6.6 g/dl (6.4-8.2) 07/06/20 20:55 Albumin 3.7 g/dl (3.4-5.0) 07/06/20 20:55 Globulin 2.9 gm/dL 07/06/20 20:55 Albumin/Globulin Ratio 1.3 (1-2) 07/06/20 20:55 Lipase 87 U/L (73-393) 07/06/20 20:55 HCG, Quant 632.0 mIU/mL 07/06/20 20:55 Blood Type A POSITIVE 07/06/20 20:55 Gel Antibody Screen Negative 07/06/20 20:55 Crossmatch See Detail 07/06/20 20:55 - Allergies Allergies/Adverse Reactions: Allergies Allergy/AdvReac Type Severity Reaction Status Date / Time cephalexin monohydrate Allergy Hives Verified 07/06/20 20:40 [From Keflex] chloraprep Allergy Burning Uncoded 02/08/20 15:14 - Blood Blood Available: No - Acknowledgements Anesthesia Type Planned: General Anesthesia Pt an Appropriate Candidate for the Planned Anesthesia: Yes Alternatives and Risks of Anesthesia Discussed w Pt/Guardian: Yes Pt/Guardian Understands and Agrees with Anesthesia Plan: Yes PreAnesthesia Questionnaire - Past Health History Medical/Surgical History: Denies Medical/Surgical History HEENT History: Reports: Impaired Vision Cardiovascular History: Reports: None Respiratory History: Reports: None Gastrointestinal History: Reports: GERD (rare) 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 , , Spontaneous : 4 Para: 2 Musculoskeletal History: Reports: Arthritis Psychiatric History: Reports: Anxiety, Depression Endocrine/Metabolic History: Reports: Obesity/BMI 30+ - Past Surgical History Female Surgical History: Reports: Section, D&C, Other (See Below) (salpingectomy) - SUBSTANCE USE Tobacco Use Status *Q: Never Tobacco User Tobacco Use Within Last Twelve Months: No Second Hand Smoke Exposure: No Days Per Week of Alcohol Use: 1 Number of Drinks Per Day: 2 Total Drinks Per Week: 2 Recreational Drug Use History: No - HOME MEDS Home Medications: Home Meds Cholecalciferol (Vitamin D3) [Vitamin D3] 1,000 unit PO DAILY 02/08/20 [History] Cider Vinegar [Apple Cider Vinegar] 300 mg PO DAILY 02/08/20 [History] Cranberry 500 mg PO DAILY 02/08/20 [History] FLUoxetine HCl [Fluoxetine HCl] 10 mg PO DAILY 02/08/20 [History] FLUoxetine HCl [Fluoxetine HCl] 20 mg PO DAILY 02/08/20 [History] Ibuprofen [Motrin] 600 mg PO Q4H PRN tablet 02/08/20 [Rx] Lactobacillus Acidophilus [Probiotic] 1 cap PO DAILY 02/08/20 [History] Lidocaine/Prilocaine [Lidocaine-Prilocaine Cream] 1 dose TOP ASDIRECTED PRN 02/08/20 [History] - CURRENT (IN HOUSE) MEDS Current Meds: Current Medications Sodium Chloride (Normal Saline) 1,000 mls @ 150 mls/hr IV NOW STA Stop: 07/07/20 03:29 Last Admin: 07/06/20 20:58 Dose: 150 mls/hr Documented by: Clindamycin Phosphate 900 mg/ (Premix) 50 mls @ 100 mls/hr IV ONETIME ONE Stop: 07/06/20 22:36 Last Admin: 07/06/20 22:15 Dose: 100 mls/hr Documented by: Sodium Chloride (Saline Flush) 10 ml FLUSH ASDIRECTED PRN PRN Reason: Keep Vein Open Last Admin: 07/06/20 20:57 Dose: 10 ml Documented by: Discontinued Medications Fentanyl (Sublimaze) Confirm Administered Dose 250 mcg .ROUTE .STK-MED ONE Stop: 07/06/20 22:22 Hydromorphone HCl (Dilaudid) 0.5 mg IVPUSH ONETIME ONE Stop: 07/06/20 20:51 Last Admin: 07/06/20 20:58 Dose: 0.5 mg Documented by: Hydromorphone HCl (Dilaudid) 0.5 mg IVPUSH ONETIME ONE Stop: 07/06/20 21:44 Last Admin: 07/06/20 21:47 Dose: 0.5 mg Documented by: Lidocaine HCl (Xylocaine-Mpf 1%) Confirm Administered Dose 4 mls @ as directed .ROUTE .STK-MED ONE Stop: 07/06/20 22:22 Midazolam HCl (Versed 1 Mg/Ml) Confirm Administered Dose 2 mg .ROUTE .STK-MED ONE Stop: 07/06/20 22:22 Ondansetron HCl (Zofran) 4 mg IVPUSH ONETIME ONE Stop: 07/06/20 20:51 Last Admin: 07/06/20 20:57 Dose: 4 mg Documented by: Ondansetron HCl (Zofran) Confirm Administered Dose 4 mg .ROUTE .STK-MED ONE Stop: 07/06/20 22:22 Propofol (Diprivan 20 Ml) Confirm Administered Dose 200 mg .ROUTE .STK-MED ONE Stop: 07/06/20 22:22 Rocuronium [place] (Zemuron) Confirm Administered Dose 50 mg .ROUTE .STK-MED ONE Stop: 07/06/20 22:22
[2020-07-06] MEDS ORDERED: Succinylcholine/Sod PF 100 MG/5 ML SYRINGE IV ONE (22:45)
[2020-07-06] MEDS ORDERED: Bupivacaine 0.5% 30 ML SDV ONE (22:49)
[2020-07-06] MEDS ORDERED: Ondansetron 4 MG/2 ML SDV IVPUSH PRN (23:19)
[2020-07-06] MEDS ORDERED: HYDROmorphone 0.5 MG/0.5 ML Syringe IVPUSH PRN (23:19)
[2020-07-06] MEDS ORDERED: fentaNYL 100 MCG/2 ML SDV IVPUSH PRN (23:19)
[2020-07-06] MEDS ORDERED: HYDROmorphone 0.5 MG/0.5 ML Syringe ONE (23:24)
[2020-07-06] MEDS ORDERED: Lactated Ringers 1,000 ML ONE (23:25)
[2020-07-06] MEDS ORDERED: Dexamethasone 4 MG/ML 5 ML MDV ONE (23:41)
[2020-07-06] MEDS ORDERED: Ketorolac 30 MG/ML SDV ONE (23:51)
--- NOTE | 2020-07-07 00:16 | PCM.POSTAN ---
POST ANESTHESIA ASSESSMENT - MENTAL STATUS Mental Status: Alert, Oriented - VITAL SIGNS Vital Signs: Last Vital Signs Temp 97.4 F 07/06/20 20:34 Pulse 69 07/06/20 20:34 Resp 20 07/06/20 20:34 BP 112/94 H 07/06/20 20:34 Pulse Ox 100 07/06/20 20:34 0010 126/64 16 98.3 87 - RESPIRATORY Respiratory Status: Respiratory Rate WNL, Airway Patent, O2 Saturation Stable, Supplemental Oxygen - CARDIOVASCULAR CV Status: Pulse Rate WNL, Blood Pressure Stable - GASTROINTESTINAL GI Status: No Symptoms - PAIN Pain Score: 1 - POST OP HYDRATION Hydration Status: Adequate & Stable
[2020-07-07] MEDS ORDERED: Ondansetron 4 MG/2 ML SDV IVPUSH PRN (00:19)
--- NOTE | 2020-07-07 00:29 | PCM.OPNOTE ---
- General Post-Op/Procedure Note Date of Surgery/Procedure: 07/06/20 Operative Procedure(s): Laparoscopy, left salpingectomy, evacuation of hemoperitoneum. Findings: Patient is noted to have a dilated left fallopian tube with bluish discoloration extending from the proximal tube through the isthmic portion. There was blood coming from the end of the tube and the tube was still intact. There were approximately 700 cc of blood in the peritoneal cavity. The appendix was flaccid and not inflamed. The right fallopian tube was surgically absent. Ovaries look functional and normal. Pre Op Diagnosis: Ectopic Post-Op Diagnosis: Sameleft tubal Anesthesia Technique: General ET Tube Other Anesthesia Type: Marcaine 0.5%localtotal of 10 cc Primary Surgeon: Josue Cheng Secondary Surgeon: Minerva Khan Anesthesia Provider: Olvin Abraham Orchard Pruner: Janna Baum Reason Orchard Pruner Was Necessary: Retraction, assistance, patient safety, quality of care. Condition: Good Free Text/Narrative:: Surgery duration: 40 minutes Procedure: The patient was taken to the operating room and placed in supine position on the operative table. She had sequential compression stockings in place for DVT prophylaxis and had been given 100 mg of clindamycin for infection prophylaxis. She was administered general endotracheal anesthesia. After administration of anesthesia the patient was placed in dorsal lithotomy position and prepped and draped in usual fashion. An indwelling bladder catheter was placed as was a uterine manipulator. Infraumbilical incision site and suprapubic site were then infiltrated with approximately 3-4 mL of Marcaine 0.5%. 5 mm incisions were made in these areas and a 12 mm port site was established in the suprapubic area in the mid range of her previous scar. Verres needle was placed in the infraumbilical incision site and pneumoperitoneum was established was in 2 L of CO2. The laparoscopic sleeve was then placed as was the scope. Under direct visualization the suprapubic site was developed with a 5 mm port. Pelvis was evaluated findings as above. Patient was noted to have significant mount of blood in the peritoneal cavity. Approximately 700 cc were removed. Initially the uterus and fallopian tubes were not visualized as they were below the level of the blood. The aspiration irrigation device was used to evacuate the blood. At that time it was readily apparent that the left fallopian tube was dilated, bluish discolored and findings were consistent with a left tubal . The decision was was made to remove the tube. Right fallopian tube had already been removed on previous laparoscopy. The left fallopian tube was then removed using an Enseal vessel closure system with cautery development of the mesosalpinx in a routine fashion. The pelvis irrigated with fluid aspirated. No bleeding is noted. Appendix appeared flaccid and noninflamed. The pneumoperitoneum was reversed. The lower sleeve having been removed under direct visualization as was the left lower quadrant port site. The upper port was removed and closed with a figure of eight suture of 0-vicryl suture with skin closure with 30 monocryl. The two 5 mm port inc isions were closed with single subcuticular interrupted suture of 3-0 Monocryl. The incisions were further approximated with steri strips as patient had a reaction previously to the dermabond glue. The uterine manipulator and Anderson catheter removed. Patient was returned to the supine position and awakened from general endotracheal anesthesia. She left the operating room in good condition.
[2020-07-07] MEDS ORDERED: Dextrose 5%-Lactated Ringers 1,000 ML IV SCH (00:30)
[2020-07-07] MEDS: Acetaminophen/oxyCODONE 325-5 MG Tab PO PRN ×3 (01:49→10:02)
[2020-07-07] MEDS ORDERED: HYDROmorphone 0.5 MG/0.5 ML Syringe IVPUSH PRN (03:18)
[2020-07-07] MEDS: Ibuprofen 600 MG Tab PO PRN ×2 (06:33→12:47)
--- NOTE | 2020-07-07 10:35 | CT ---
CT abdomen and pelvis Technique: Multiple axial sections were obtained from above the dome of the diaphragm inferiorly through the pubic symphysis. Intravenous contrast was utilized. Delayed images were also obtained. Comparison: Prior pelvic ultrasound in 02/08/20. Findings: Fluid is seen around the liver and spleen which is increased in density and is most likely due to blood. Visualized lung bases show nothing acute. Liver and spleen show no focal parenchymal abnormality. Adrenal glands show no nodule. Pancreas shows no abnormality. Gallbladder contains no calcified gallstones. Kidneys show symmetric contrast enhancement. Appendix not visualized. Aorta shows no aneurysm. No retroperitoneal adenopathy is seen. Fluid around the liver and spleen continues along the paracolic gutters into the pelvis. There is soft tissue density within the posterior pelvis most likely representing a blood clot. Given that the patient has elevated B hCGs this finding is most likely due to ruptured ectopic . Delayed images show contrast within the ureters and within the bladder with no ureteral dilatation. Bone window settings were reviewed which show no acute osseous finding. Impression: 1. Blood along the liver and spleen with blood within the paracolic gutters on both sides extending into the pelvis. 2. Soft tissue density within the posterior pelvis most likely representing large blood clot. 3. Overall, findings are most consistent with ruptured ectopic . Diagnostic code #5 I agree with preliminary report from [facility], finalized on 07/06/20, 11:[address] EQUIPMENT OPERATOR
--- NOTE | 2020-07-07 11:04 | PCM.SN.2 ---
- Free Text/Narrative Note: Deliverypostoperative note: Caterina is having mild to moderate discomfort. It has been improved with ibuprofen and Dilaudid. Mostly abdominal in location. Patient has been up to the bathroom and is voided well. She felt somewhat lightheaded but generally okay. Vital signs are stable. Pulse is in the 60s generally. She is having no bleeding whatsoever. Lungs are clear with good breath sounds in all lung galaviz. Cardiovascular exam shows regular rate and rhythm without murmur. Abdomen shows intact, dry laparoscopic incision sites with Band-Aids covering them. Positive bowel sounds are noted. Legs are nontender. Hemoglobin is 9 which is down from 11.1 preoperatively. Her platelets are 214,000. Assessment: Day of delivery-status post laparoscopic left salpingectomy for hemorrhagic ectopic with evacuation of [id number] cc. Patient doing reasonably well. Pain control is okay but not optimal. Hemoglobin is down. Plan: 1. Will get the patient up and around to see how she ambulates. If she ambulates well and is doing satisfactory with the reduction in hemoglobin will consider discharge home on iron replacement therapy. 2. Discontinue IV when tolerating activity well and vital signs are stable. 3. Have discussed discharge instructions with patient including the following: A. Discharge home B. Regular high-fiber, high iron diet with adequate fluid intake at first. C. Routine postoperative activity including weight lifting restrictions of less than 15 pounds, no driving a car times the next 5 to 7 days, avoid baths but may take a shower. No intercourse or tampons until seen back D. Medications include ibuprofen and Percocet. Prescription left on the chart for Percocet 1-2 tabs every 4 hours as needed for pain. Quantity 30. Refill none. E. Return to clinic in next 2 to 3 weeks. F. Call for increased pain, bleeding, temperature or worsening condition.
--- NOTE | 2020-07-07 12:33 | PCM48HPAN ---
Post Anesthesia Note - EVALUATION WITHIN 48HRS OF ANESTHETIC Vital Signs in Normal Range: Yes Patient Participated in Evaluation: Yes Respiratory Function Stable: Yes Airway Patent: Yes Cardiovascular Function Stable: Yes Hydration Status Stable: Yes Pain Control Satisfactory: Yes Nausea and Vomiting Control Satisfactory: Yes Mental Status Recovered: Yes Vital Signs: Last Vital Signs Temp 36.9 C 07/07/20 01:30 Pulse 69 07/07/20 08:54 Resp 16 07/07/20 03:30 BP 106/50 L 07/07/20 08:54 Pulse Ox 97 07/07/20 08:54
[2020-07-07] MEDS ORDERED: traMADol 50 MG Tab PO PRN (13:52)
[2020-07-07] MEDS ORDERED: diphenhydrAMINE 50 MG Cap PO ONE (13:56)
== END 2020-07-07 15:00 | disposition home or self-care (01) ==
LOC: JD.ED 20:18 → JD.SDS 22:08 → JD.OB 07-07 01:30 → JD.SDS 07-07 15:00
PROVIDERS: ATTEND Obstetrics & Gynecology
DX: O00.102 Left tubal pregnancy without intrauterine pregnancy (principal); N83.8 Other noninflammatory disorders of ovary, fallopian tube and broad ligament; E66.9 Obesity, unspecified; Z01.812 Encounter for preprocedural laboratory examination; Z20.822 Contact with and (suspected) exposure to COVID-19; Z98.890 Other specified postprocedural states; Z88.8 Allergy status to other drugs, medicaments and biological substances; Z91.048 Other nonmedicinal substance allergy status; Z79.899 Other long term (current) drug therapy; Z68.32 Body mass index [BMI] 32.0-32.9, adult
CPT/HCPCS: 36415; 59151; 74177; 80053; 83690; 84702; 85025; 86140; 86850; 86900; 86901; 86922; 87635; A9270; J0330; J1100; J1170; J1885; J2001; J2250; J2405; J2704; J2710; J3010; J3490; J7030; J7120; 00840; 99284; U0002

== ENCOUNTER 2021-06-13 12:22 | Inpatient (IN) | payer BC ==
--- NOTE | 2021-06-13 07:22 | PCM.PREANE ---
Preanesthetic Assessment - Anesthesia/Transfusion/Family Hx Anesthesia History: Prior Anesthesia Without Reaction Family History of Anesthesia Reaction: No Transfusion History: No Prior Transfusion(s) - Review of Systems General: Other (fatigue, anemia) Pulmonary: No Symptoms Cardiovascular: No Symptoms Gastrointestinal: No Symptoms Neurological: No Symptoms Other: Reports: Depression, Anxiety - Physical Assessment NPO Status Date: 06/12/21 NPO Status Time: 21:00 Weight: 105.5 kg ASA Class: 2 Mental Status: Alert & Oriented x3 Airway Class: Mallampati = 2 Dentition: Reports: Normal Dentition Thyro-Mental Finger Breadths: 3 Mouth Opening Finger Breadths: 3 ROM/Head Extension: Full Lungs: Clear to Auscultation, Normal Respiratory Effort Cardiovascular: Regular Rate, Regular Rhythm - Allergies Allergies/Adverse Reactions: Allergies Allergy/AdvReac Type Severity Reaction Status Date / Time adhesive Allergy Cannot Verified 06/12/21 12:45 Remember benzoin Allergy Cannot Verified 06/12/21 12:45 Remember bupropion Allergy Cannot Verified 06/12/21 12:45 Remember cephalexin monohydrate Allergy Hives Verified 06/12/21 12:45 [From Keflex] chloraprep Allergy Burning Uncoded 06/12/21 12:45 - Blood Blood Available: No Product(s) Available: None - Anesthesia Plan Pre-Op Medication Ordered: None - Acknowledgements Anesthesia Type Planned: General Anesthesia Pt an Appropriate Candidate for the Planned Anesthesia: Yes Alternatives and Risks of Anesthesia Discussed w Pt/Guardian: Yes Pt/Guardian Understands and Agrees with Anesthesia Plan: Yes PreAnesthesia Questionnaire - Past Health History Medical/Surgical History: Denies Medical/Surgical History HEENT History: Reports: Allergic Rhinitis, Impaired Vision Cardiovascular History: Reports: None Respiratory History: Reports: None Gastrointestinal History: Reports: GERD, Other (See Below) Other Gastrointestinal History: abdominal pain Genitourinary History: Reports: UTI, Recurrent, Other (See Below) Other Genitourinary History: urgency, vaginal irritation, yeast vaginitis, laparoscopies N[employer] [facility] MAGISTRATE History: Reports: Ectopic , , Spontaneous Musculoskeletal History: Reports: Arthritis Neurological History: Reports: None Psychiatric History: Reports: Anxiety, Depression Endocrine/Metabolic History: Reports: Obesity/BMI 30+ Hematologic History: Reports: None Immunologic History: Reports: None Oncologic (Cancer) History: Reports: None Dermatologic History: Reports: None - Infectious Disease History Infectious Disease History: Reports: None - Past Surgical History Head Surgeries/Procedures: Reports: None HEENT Surgical History: Reports: Tonsillectomy Cardiovascular Surgical History: Reports: None Respiratory Surgical History: Reports: None GI Surgical History: Reports: None Female Surgical History: Reports: Section, D&C Male Surgical History: Reports: None Endocrine Surgical History: Reports: None Neurological Surgical History: Reports: None Musculoskeletal Surgical History: Reports: Arthroscopic Knee, ORIF Oncologic Surgical History: Reports: None Dermatological Surgical History: Reports: None - SUBSTANCE USE Tobacco Use Status *Q: Never Tobacco User Recreational Drug Use History: No - HOME MEDS Home Medications: Home Meds Cholecalciferol (Vitamin D3) [Vitamin D3] 1,000 unit PO DAILY 02/08/20 [History] Cider Vinegar [Apple Cider Vinegar] 300 mg PO DAILY 02/08/20 [History] Cranberry 500 mg PO DAILY 02/08/20 [History] FLUoxetine HCl [Fluoxetine HCl] 10 mg PO DAILY 02/08/20 [History] FLUoxetine HCl [Fluoxetine HCl] 20 mg PO DAILY 02/08/20 [History] Lactobacillus Acidophilus [Probiotic] 1 cap PO DAILY 02/08/20 [History] Lidocaine/Prilocaine [Lidocaine-Prilocaine Cream] 1 dose TOP ASDIRECTED PRN 02/08/20 [History] Cyanocobalamin (Vitamin B-12) [Vitamin B-12] 1,000 mcg PO DAILY 06/12/21 [History] valACYclovir HCl [valACYclovir] 2,000 mg PO ASDIRECTED PRN 06/12/21 [History] - CURRENT (IN HOUSE) MEDS Current Meds: Current Medications Lactated Ringer's (Ringers, Lactated) 1,000 mls @ 125 mls/hr IV ASDIRECTED [facility] Clindamycin Phosphate 900 mg/ (Premix) 50 mls @ 100 mls/hr IV ONETIME ONE Stop: 06/13/21 07:29 Gentamicin Sulfate 527 mg/ (Sodium Chloride) 113.175 mls @ 113.175 mls/hr IV ONETIME ONE Stop: 06/13/21 07:59 Lidocaine/Sodium Bicarbonate (Lidocaine 1%/Sod Bicarbonate In Ns 8.4% 1 Ml Syringe) 0.25 ml IDERM ONETIME PRN PRN Reason: Prior to IV Start Sodium Chloride (Sodium Chloride 0.9% 10 Ml Syringe) 10 ml FLUSH ASDIRECTED PRN PRN Reason: Keep Vein Open Discontinued Medications Dexamethasone (Dexamethasone 4 Mg/Ml 5 Ml Mdv) Confirm Administered Dose 20 mg .ROUTE .STK-MED ONE Stop: 06/13/21 07:05 Fentanyl (Fentanyl 250 Mcg/5 Ml Sdv) Confirm Administered Dose 250 mcg .ROUTE .STK-MED ONE Stop: 06/13/21 07:05 Hydromorphone HCl (Hydromorphone 0.5 Mg/0.5 Ml Syringe) Confirm Administered Dose 0.5 mg .ROUTE .STK-MED ONE Stop: 06/13/21 07:04 Lactated Ringer's (Ringers, Lactated) Confirm Administered Dose 1,000 mls @ as directed .ROUTE .STK-MED ONE Stop: 06/13/21 07:04 Lidocaine HCl (Xylocaine-Mpf 1%) Confirm Administered Dose 4 mls @ as directed .ROUTE .ST-MED ONE Stop: 06/13/21 07:05 Ketamine HCl (Ketamine 500 Mg/10 Ml Mdv) Confirm Administered Dose 500 mg .ROUTE .STK-MED ONE Stop: 06/13/21 07:05 Ketorolac Tromethamine (Ketorolac 30 Mg/Ml Sdv) Confirm Administered Dose 30 mg .ROUTE .STK-MED ONE Stop: 06/13/21 07:04 Midazolam HCl (Midazolam 1 Mg/Ml 2 Ml Sdv) Confirm Administered Dose 2 mg .ROUTE .STK-MED ONE Stop: 06/13/21 07:04 Ondansetron HCl (Ondansetron 4 Mg/2 Ml Sdv) Confirm Administered Dose 4 mg .ROUTE .STK-MED ONE Stop: 06/13/21 07:04 Propofol (Propofol 200 Mg/20 Ml Sdv) Confirm Administered Dose 200 mg .ROUTE .STK-MED ONE Stop: 06/13/21 07:04 Rocuronium Alpine (Rocuronium 50 Mg/5 Ml Vial) Confirm Administered Dose 50 mg .ROUTE .STK-MED ONE Stop: 06/13/21 07:04
[2021-06-13] MEDS: Lactated Ringers 1,000 ML IV SCH ×4 (07:25→22:40)
[2021-06-13] MEDS: fentaNYL 100 MCG/2 ML SDV IVPUSH PRN ×3 (10:05→10:30)
--- NOTE | 2021-06-13 10:08 | PCM.POSTAN ---
POST ANESTHESIA ASSESSMENT - MENTAL STATUS Mental Status: Alert, Oriented - RESPIRATORY Respiratory Status: Respiratory Rate WNL, Airway Patent, O2 Saturation Stable, Supplemental Oxygen - CARDIOVASCULAR CV Status: Pulse Rate WNL, Blood Pressure Stable - GASTROINTESTINAL GI Status: No Symptoms - PAIN Pain Score: 0 - POST OP HYDRATION Hydration Status: Adequate & Stable
[2021-06-13] MEDS: HYDROmorphone 0.5 MG/0.5 ML Syringe IVPUSH PRN ×4 (10:10→18:21)
--- NOTE | 2021-06-13 10:19 | PCM.OPNOTE ---
- General Post-Op/Procedure Note Date of Surgery/Procedure: 06/13/21 Operative Procedure(s): Laparoscopy, total abdominal hysterectomy. Findings: Patient is noted to have moderate scarring in the anterior abdominal wall in the area of her Pfannenstiel incision. There was moderate scarring on the anterior surface of the uterus consistent with advancement of the bladder secondary to her C-sections. The gallbladder, liver edge, appendix looked normal. Bowel looked unremarkable. Pre Op Diagnosis: Menorrhagia Post-Op Diagnosis: Same Anesthesia Technique: General ET Tube Other Anesthesia Type: Marcaine 0.5%approximately 15 cc total Primary Surgeon: Josue Cheng Secondary Surgeon: Liana Edge Anesthesia Provider: Cinthia Thompson Family Day Care Provider: Azul Leonard Reason Family Day Care Provider Was Necessary: Assistance, retraction, patient safety, quality of care. Pathology: Uterus and cervix along with a portion of right fallopian tube in 1 specimen container. Fluid Replacement, Intraop: 1,200 Output, Urine Amount: 200 Drain/Tube Comments:: Indwelling bladder catheter Complications: None Condition: Good Free Text/Narrative:: Surgery duration: 1 hour 27 minutes Procedure: The patient was taken to the operating room and placed in supine position on the operative table. She had sequential compression stockings in place for DVT prophylaxis and had been given gentamicin and clindamycin per pharmacy dosage recommendations for infection prophylaxis. She was administered general endotracheal anesthesia. After administration of anesthesia the patient was placed in dorsal lithotomy position and prepped and draped in usual fashion. An indwelling bladder catheter was placed. Infraumbilical incision site and suprapubic site were then infiltrated with approximately 3-4 mL of Marcaine 0.5%. 5 mm incisions were made in these areas. Verres needle was placed in the infraumbilical incision site and pneumoperitoneum was established was in 3 L of CO2. The laparoscopic sleeve was then placed as was the scope. Under direct visualization the right lower quadrant site was developed with a 5 mm port. Pelvis was evaluated findings as above.. The right lower quadrant appeared free of any adhesions or bowel and attempt was made at the placement of the left lower quadrant port site. In course this placement A fold of anterior abdominal wall was noted. Is unclear as to whether this was adhesed bowel or was at abdominal wall. In light of the patient's previous multiple surgery history decision was made at this point to proceed to laparotomy and total abdominal hysterectomy. Upon entrance into the abdominal cavity with laparotomy the bowel was felt to be clear of this area and there were no adhesions noted. There is no evidence of any bowel injury or that the bowel is even close to the area of the port site. Total abdominal hysterectomy was not performed. The Pfannenstiel incision was carried down through skin the area of the old scar, subcutaneous and fascial layers. Severe and dense adhesions/scar tissue were apparent. Abdominal cavity was entered without problems. Upon entrance into the abdominal cavity there was no evidence of adhesions in the left lower quadrant site that was of concern earlier. No evidence of any trocar injury or even penetration of that site to the peritoneum with the trocar placement attempt. A large sized Dexter self-retaining retractor was placed. The uterus was elevated with a double-tooth tenaculum at the fundus. The bowel was packed out of the way with 3 moist laps. Anterior cul-de-sac was noted to have bladder moderately adherent to the front side of the uterus secondary to previous C- sections. The left fallopian tube is entirely absent from previous ectopic . The distal portion of the right fallopian tube was also absent. Using a Enseal vessel closure device the right round ligament and upper broad ligament. The right fallopian tube segment was removed separately sent with the same specimen container. Ovaries were conserved per patient desire. The ovarian ligament, round ligament, broad ligament were then taken down in a routine stepwise fashion using the Enseal system. Same was done on patient's left side. The cardinal ligaments and taken down on each side to the level of the to the cervix using Hoang clamps and Hoang suture ligatures of full Vicryl. The angles of the vagina were then crossclamped using Hoang clamps 2 these pedicles were cut and were suture ligated with Hoang stitch of #1 Vicryl. A short running locked 0 Vicryl suture was then placed in the mid incision to complete the closure. Hemostasis was confirmed at this time. The pelvis was irrigated with fluid aspirated. The 3 sponges that had been placed was removed. The abdominal was then closed. The fascia was closed with a running suture of #1 PDS from angle to angle. The subcutaneous area was closed with 20 Monocryl suture first an interrupted layer. Subcuticular closure was then undertaken using 3-0 Monocryl suture on the All needle. 3 laparoscopic incision port sites were closed with single interrupted suture of 3-0 Monocryl and further approximated with skin glue. The Pfannenstiel incision was further approximated with Prineo mesh. The patient was awakened from general endotracheal anesthesia and was discharged from the operating room in good condition.
[~2021-06-13 12:22] MED LIST changes: +Bupivacaine 0.5% 30 ML SDV ONE; +Clindamycin Phosphate in D5W 900 MG in Premix Bag 1 BAG IV ONE; +Dexamethasone 4 MG/ML 5 ML MDV ONE; +GENTAMICIN IV ONE; +Gentamicin 40 MG/ML 2 ML Vial IV SCH; +HYDROmorphone 0.5 MG/0.5 ML Syringe ONE; +Ketamine 500 mg/10 ML MDV ONE; +Ketorolac 30 MG/ML SDV ONE; +Lactated Ringers 1,000 ML ONE; +Lidocaine 1% 4 ML ONE; +Lidocaine 1% with EPINEPHrine 1:100,000 20 ML MDV ONE; +Lidocaine 1%/Sod Bicarbonate in NS 8.4% 1 ML Syringe IDERM PRN; +Midazolam 1 MG/ML 2 ML SDV IVPUSH ONE; +Midazolam 1 MG/ML 2 ML SDV ONE; +Ondansetron 4 MG/2 ML SDV IVPUSH PRN; +Ondansetron 4 MG/2 ML SDV ONE; +Propofol 200 MG/20 ML SDV ONE; +Rocuronium 50 MG/5 ML Vial ONE; +SODIUM CHLORIDE 0.9% IV ONE; +Sodium Chloride 0.9% 20 ML ONE; +ePHEDrine 50 MG/ML SDV ONE; +fentaNYL 250 MCG/5 ML SDV ONE
[2021-06-13] MEDS: hydrOXYzine HCl 25 MG Tab PO PRN ×2 (13:40→19:40)
[2021-06-13] MEDS: Ibuprofen 400 MG Tab PO SCH ×2 (14:14→22:38)
[2021-06-13] MEDS: Acetaminophen/oxyCODONE 325-5 MG Tab PO PRN ×2 (15:19→19:41)
[2021-06-13] MEDS: Docusate Sodium 100 MG Cap PO SCH ×2 (19:40→23:12)
[2021-06-14] MEDS: Acetaminophen/oxyCODONE 325-5 MG Tab PO PRN ×3 (02:31→13:33)
[2021-06-14] MEDS: hydrOXYzine HCl 25 MG Tab PO PRN (02:32)
[2021-06-14] MEDS: Ibuprofen 400 MG Tab PO SCH ×2 (05:59→14:06)
--- NOTE | 2021-06-14 06:57 | PCM48HPAN ---
Post Anesthesia Note - EVALUATION WITHIN 48HRS OF ANESTHETIC Vital Signs in Normal Range: Yes Patient Participated in Evaluation: Yes Respiratory Function Stable: Yes Airway Patent: Yes Cardiovascular Function Stable: Yes Hydration Status Stable: Yes Pain Control Satisfactory: Yes Nausea and Vomiting Control Satisfactory: Yes Mental Status Recovered: Yes Vital Signs: Last Vital Signs Temp 99.0 F 06/14/21 04:00 Pulse 56 L 06/14/21 02:30 Resp 14 06/14/21 04:00 BP 118/58 L 06/14/21 02:30 Pulse Ox 95 06/14/21 02:30 - COMMENTS/OBSERVATIONS Free Text/Narrative:: Patient's pain management has been controlled and within a tolerable level. Patient states that it is "a million times better than yesterday". Patient was stating that she would be very happy to leave today if Dr. Cheng clears her for discharge. No anesthesia complications voiced and no concerns voiced from patient at this time. Katerine Villatoro, [employer]
--- NOTE | 2021-06-14 08:13 | PCM.DCSUM1 ---
Discharge Summary - Hospital Course Free Text/Narrative:: Roxy is a 36-year-old 4 para 2-0-2-2 female who was admitted on the a.m. of 06/13/2021 for a hysterectomy. Decision as to go vaginally, with an LAVH or total abdominal hysterectomy was to be made at the time of surgery. The seizures, the risks, benefits and follow-up are discussed in detail with the patient and her . They appear to understand and wished to proceed. Under anesthesia decision made to proceed with laparoscopically assisted vaginal hysterectomy. Preoperative evaluation was performed. Risks and benefits of procedure were discussed with patient. She is placed under general anesthesia. Under anesthesia laparoscopy was initiated. These infraumbilical port site and the right lower quadrant port site were made. Upon laparoscopic evaluation of the pelvis the area in front of the uterus showed bladder advancement up onto the uterus was concerned about possible adhesion to the front left abdominal wall. Decision was made to do a total abdominal hysterectomy because of this. Total abdominal hysterectomy was performed. Patient had a previous bilateral salpingectomy for ectopictubal pregnancies x2. See operative report for details. Postoperatively pain was significant but was controlled eventually with ib uprofen, Percocet and hydroxyzine. There appeared to be a significant anxiety component to her pain. That improved with the addition of the hydroxyzine. Her vital signs remained stable throughout the postoperative period patient's output was good. Anderson catheter was left in place until the morning after surgery and then was removed. She is drinking well and has had near a regular diet postope ratively. She has been ambulating. Her vital signs been stable and she is afebrile. Patient is desiring discharge home from the hospital. Diagnosis: Stroke: No - Discharge Data Discharge Date: 06/14/21 Discharge Disposition: Home, Self-Care 01 Condition: Good - Referral to Home Health Primary Care Physician: ROSELYN Yung - Discharge Diagnosis/Problem(s) (1) Menorrhagia SNOMED Code(s): 338267450 ICD Code: N92.0 - EXCESSIVE AND FREQUENT MENSTRUATION WITH REGULAR CYCLE Status: Acute Current Visit: Yes - Patient Summary/Data Operative Procedure(s) Performed: Laparoscopy, total abdominal hysterectomy. - Patient Instructions Diet: Regular Diet as Tolerated (High-fiber diet as recommended.) Activity: As Tolerated (No intercourse or tampons until seen back. No lifting greater than 15 pounds or driving a car times at least 7 to 10 days.) Driving: Do Not Drive Showering/Bathing: May Shower Wound/Incision Care: Keep Operative Site/Wound Site Clean and Dry Notify Provider of: Fever, Increased Pain, Swelling and Redness, Drainage - Discharge Plan Prescriptions/Med Rec: Ibuprofen 600 mg PO Q4HR PRN #100 tablet PRN Reason: Pain Home Medications: Home Meds Cholecalciferol (Vitamin D3) [Vitamin D3] 1,000 unit PO DAILY 02/08/20 [History] Cranberry 500 mg PO DAILY 02/08/20 [History] Lactobacillus Acidophilus [Probiotic] 1 cap PO DAILY 02/08/20 [History] Lidocaine/Prilocaine [Lidocaine-Prilocaine Cream] 1 dose TOP ASDIRECTED PRN 02/08/20 [History] Cyanocobalamin (Vitamin B-12) [Vitamin B-12] 1,000 mcg PO DAILY 06/12/21 [History] valACYclovir HCl [valACYclovir] 2,000 mg PO ASDIRECTED PRN 06/12/21 [History] Acetaminophen/oxyCODONE [Percocet 325-5 MG] 2 tab PO Q4H PRN tablet 06/14/21 [Rx] Ibuprofen 600 mg PO Q4HR PRN #100 tablet 06/14/21 [Rx] Referrals: Josue Cheng MD [Physician] - (Return to clinic[facility]. Cheng[facility]-3 weeks.) - Discharge Summary/Plan Comment DC Time >30 min.: Yes Total # of Minutes for Discharge Time: 10 Discharge Summary/Plan Comment: Discharge instructions: 1. Discharge home 2. Diet, activity and follow-up discussed with patient. 3. Precautions given concern increased pain, bleeding, temperature, signs/symptoms of DVT/PE. 4. Medications per home medication was printed, discussed with and given to the patient. 5. Return to clinic-Dr. Cheng-[facility] in 2-3 weeks. Diagnosis: Menorrhagia status post total abdominal hysterectomy Condition: Good - Patient Data Vitals - Most Recent: Last Vital Signs Temp 37.2 C 06/14/21 04:00 Pulse 56 L 06/14/21 02:30 Resp 14 06/14/21 04:00 BP 118/58 L 06/14/21 02:30 Pulse Ox 95 06/14/21 02:30 Weight - Most Recent: 105.233 kg I&O - Last 24 hours: Intake & Output 06/13/21 06/14/21 06/14/21 22:59 06:59 14:59 Intake Total 1320 2500 Output Total 2200 1750 Balance -880 750 Lab Results - Last 24 hrs: Laboratory Results - last 24 hr 06/13/21 06/14/21 Range/Units 07:35 05:45 WBC 11.16 H (3.98-10.04) K/mm3 RBC 3.84 L (3.98-5.22) M/mm3 Hgb 11.9 D (11.2-15.7) gm/dl Hct 36.0 (34.1-44.9) % MCV 93.8 (79.4-94.8) fl MCH 31.0 (25.6-32.2) pg MCHC 33.1 (32.2-35.5) g/dl RDW Std Deviation 40.3 (36.4-46.3) fL Plt Count 218 (182-369) K/mm3 MPV 10.7 (9.4-12.3) fl Neut % (Auto) 72.0 H (34.0-71.1) % Lymph % (Auto) 19.4 (19.3-51.7) % [place] % (Auto) 8.1 (4.7-12.5) % Eos % (Auto) 0.1 L (0.7-5.8) Baso % (Auto) 0.2 (0.1-1.2) % Neut # (Auto) 8.04 H (1.56-6.13) K/mm3 Lymph # (Auto) 2.17 (1.18-3.74) K/mm3 [place] # (Auto) 0.90 H (0.24-0.36) K/mm3 Eos # (Auto) 0.01 L (0.04-0.36) K/mm3 Baso # (Auto) 0.02 (0.01-0.08) K/mm3 Blood Type A POSITIVE Gel Antibody Screen Negative Med Orders - Current: Current Medications Docusate Sodium (Docusate Sodium 100 Mg Cap) 100 mg PO BID LACI Last Admin: 06/13/21 23:12 Dose: Not Given Documented by: Hydromorphone HCl (Hydromorphone 0.5 Mg/0.5 Ml Syringe) 0.1 mg IVPUSH Q1H PRN PRN Reason: Pain (severe 7-10) Last Admin: 06/13/21 18:21 Dose: 0.1 mg Documented by: Hydroxyzine HCl (Hydroxyzine Hcl 25 Mg Tab) 25 mg PO Q6H PRN PRN Reason: Pain Last Admin: 06/14/21 02:32 Dose: 25 mg Documented by: Lactated Ringer's (Ringers, Lactated) 1,000 mls @ 125 mls/hr IV ASDIRECTED [facility] Last Admin: 06/13/21 22:40 Dose: 125 mls/hr Documented by: Ibuprofen (Ibuprofen 400 Mg Tab) 800 mg PO Q8H [facility] Last Admin: 06/14/21 05:59 Dose: 800 mg Documented by: Ondansetron HCl (Ondansetron 4 Mg/2 Ml Sdv) 4 mg IVPUSH Q4H PRN PRN Reason: Nausea/Vomiting Oxycodone/Acetaminophen (Acetaminophen/Oxycodone 325-5 Mg Tab) 1 tab PO Q4H PRN PRN Reason: Pain (moderate 4-6) Last Admin: 06/14/21 02:31 Dose: 1 tab Documented by: Oxycodone/Acetaminophen (Acetaminophen/Oxycodone 325-5 Mg Tab) 2 tab PO Q4H PRN PRN Reason: Pain (severe 7-10) Last Admin: 06/13/21 19:41 Dose: 2 tab Documented by: Discontinued Medications Bupivacaine HCl (Bupivacaine 0.5% 30 Ml Sdv) Confirm Administered Dose 30 ml .ROUTE .STK-MED ONE Stop: 06/13/21 07:25 Dexamethasone (Dexamethasone 4 Mg/Ml 5 Ml Mdv) Confirm Administered Dose 20 mg .ROUTE .STK-MED ONE Stop: 06/13/21 07:05 Ephedrine Sulfate (Ephedrine 50 Mg/Ml Sdv) Confirm Administered Dose 50 mg .ROUTE .STK-MED ONE Stop: 06/13/21 08:59 Fentanyl (Fentanyl 250 Mcg/5 Ml Sdv) Confirm Administered Dose 250 mcg .ROUTE .STK-MED ONE Stop: 06/13/21 07:05 Fentanyl (Fentanyl 100 Mcg/2 Ml Sdv) 50 mcg IVPUSH Q5M PRN PRN Reason: Pain Stop: 06/13/21 18:00 Last Admin: 06/13/21 10:30 Dose: 50 mcg Documented by: Fluoxetine HCl (Fluoxetine 10 Mg Cap) 10 mg PO DAILY [facility] Glycopyrrolate (Glycopyrrolate 0.2 Mg/Ml 2 Ml Syringe) Confirm Administered Dose 0.8 mg .ROUTE .STK-MED ONE Stop: 06/13/21 08:26 Hydromorphone HCl (Hydromorphone 0.5 Mg/0.5 Ml Syringe) Confirm Administered Dose 0.5 mg .ROUTE .STK-MED ONE Stop: 06/13/21 07:04 Hydromorphone HCl (Hydromorphone 0.5 Mg/0.5 Ml Syringe) Confirm Administered Dose 0.5 mg .ROUTE .STK-MED ONE Stop: 06/13/21 08:36 Hydromorphone HCl (Hydromorphone 0.5 Mg/0.5 Ml Syringe) 0.5 mg IVPUSH Q10M PRN PRN Reason: Pain (severe 7-10) Stop: 06/13/21 18:00 Last Admin: 06/13/21 10:20 Dose: 0.5 mg Documented by: Lactated Ringer's (Ringers, Lactated) 1,000 mls @ 125 mls/hr IV ASDIRECTED [facility] Stop: 06/13/21 18:00 Last Admin: 06/13/21 11:41 Dose: 125 mls/hr Documented by: Clindamycin Phosphate 900 mg/ (Premix) 50 mls @ 100 mls/hr IV ONETIME ONE Stop: 06/13/21 07:29 Last Admin: 06/13/21 07:30 Dose: 100 mls/hr Documented by: Gentamicin Sulfate 527 mg/ (Sodium Chloride) 113.175 mls @ 113.175 mls/hr IV ONETIME ONE Stop: 06/13/21 07:59 Last Admin: 06/13/21 07:30 Dose: 113.175 mls/hr Documented by: Lactated Ringer's (Ringers, Lactated) Confirm Administered Dose 1,000 mls @ as directed .ROUTE .STK-MED ONE Stop: 06/13/21 07:04 Lidocaine HCl (Xylocaine-Mpf 1%) Confirm Administered Dose 4 mls @ as directed .ROUTE .STK-MED ONE Stop: 06/13/21 07:05 Sodium Chloride (Normal Saline) Confirm Administered Dose 20 mls @ as directed .ROUTE .STK-MED ONE Stop: 06/13/21 07:24 Ketamine HCl (Ketamine 500 Mg/10 Ml Mdv) Confirm Administered Dose 500 mg .ROUTE .STK-MED ONE Stop: 06/13/21 07:05 Ketorolac Tromethamine (Ketorolac 30 Mg/Ml Sdv) Confirm Administered Dose 30 mg .ROUTE .STK-MED ONE Stop: 06/13/21 07:04 Lidocaine/Epinephrine (Lidocaine 1% With Epinephrine 1:100,000 20 Ml Mdv) Confirm Administered Dose 20 ml .ROUTE .STK-MED ONE Stop: 06/13/21 07:24 Last Admin: 06/13/21 08:22 Dose: 20 ml Documented by: Lidocaine/Sodium Bicarbonate (Lidocaine 1%/Sod Bicarbonate In Ns 8.4% 1 Ml Syringe) 0.25 ml IDERM ONETIME PRN PRN Reason: Prior to IV Start Stop: 06/13/21 18:00 Last Admin: 06/13/21 07:25 Dose: 0.25 ml Documented by: Midazolam HCl (Midazolam 1 Mg/Ml 2 Ml Sdv) Confirm Administered Dose 2 mg .ROUTE .STK-MED ONE Stop: 06/13/21 07:04 Midazolam HCl (Midazolam 1 Mg/Ml 2 Ml Sdv) 2 mg IVPUSH ONETIME ONE Stop: 06/13/21 10:27 Last Admin: 06/13/21 10:35 Dose: 2 mg Documented by: Neostigmine Methylsulfate (Neostigmine Methylsulfate 5 Mg/5 Ml Syringe) Confirm Administered Dose 5 mg .ROUTE .STK-MED ONE Stop: 06/13/21 08:26 Ondansetron HCl (Ondansetron 4 Mg/2 Ml Sdv) Confirm Administered Dose 4 mg .ROUTE .STK-MED ONE Stop: 06/13/21 07:04 Ondansetron HCl (Ondansetron 4 Mg/2 Ml Sdv) 4 mg IVPUSH ONETIME PRN PRN Reason: Nausea/Vomiting Stop: 06/13/21 18:00 Propofol (Propofol 200 Mg/20 Ml Sdv) Confirm Administered Dose 200 mg .ROUTE .STK-MED ONE Stop: 06/13/21 07:04 Rocuronium [place] (Rocuronium 50 Mg/5 Ml Vial) Confirm Administered Dose 50 mg .ROUTE .STK-MED ONE Stop: 06/13/21 07:04 Sodium Chloride (Sodium Chloride 0.9% 10 Ml Syringe) 10 ml FLUSH ASDIRECTED PRN PRN Reason: Keep Vein Open Stop: 06/13/21 23:00
[2021-06-14] MEDS ORDERED: FLUoxetine 10 MG Cap PO SCH (09:00)
[2021-06-14] MEDS: Docusate Sodium 100 MG Cap PO SCH (09:16)
== END 2021-06-14 14:10 | disposition home or self-care (01) | DRG 513 ==
LOC: JD.SDS 12:22 → JD.OB 12:26
PROVIDERS: ADMIT Obstetrics & Gynecology; ATTEND Obstetrics & Gynecology
PROC: 0UT90ZZ Resection of Uterus, Open Approach (ICD-10-PCS; principal; 2021-06-13)
PROC: 0UJD4ZZ Inspection of Uterus and Cervix, Percutaneous Endoscopic Approach (ICD-10-PCS; 2021-06-13)
DX: N92.0 Excessive and frequent menstruation with regular cycle (principal); H54.7 Unspecified visual loss; K21.9 Gastro-esophageal reflux disease without esophagitis; M19.90 Unspecified osteoarthritis, unspecified site; F41.9 Anxiety disorder, unspecified; F32.A Depression, unspecified; E66.9 Obesity, unspecified; Z90.89 Acquired absence of other organs; Z88.1 Allergy status to other antibiotic agents; Z91.09 Other allergy status, other than to drugs and biological substances; Z88.8 Allergy status to other drugs, medicaments and biological substances; Z87.440 Personal history of urinary (tract) infections; Z79.899 Other long term (current) drug therapy; Z53.31 Laparoscopic surgical procedure converted to open procedure; Z68.38 Body mass index [BMI] 38.0-38.9, adult; Z98.890 Other specified postprocedural states
CPT/HCPCS: 00840; 36415; 81003; 81025; 82565; 85025; 86850; 86900; 86901; A9270-GY; J1100; J1170; J1580; J1885; J2250; J2405; J2704; J2710; J3010; J3490; J7120